=== PATIENT | female | born 1995 | race African-American/Black ===

== ENCOUNTER 2018-02-11 17:31 | Emergency (ER) | payer OTHER ==
[2018-02-11 18:07] VITALS: BP 130/61; PULSE 87; TEMP 98.2; BMI 61.3
--- NOTE | 2018-02-11 18:21 | PDOC ---
History of Present Illness - General History Source: Patient Exam Limitations: No Limitations - History of Present Illness Initial Comments: 02/11/18 18:48 The patient is a 22 year old female, with a significant past medical history of obesity, who presents to the emergency department complaining of nausea, lightheadedness, bodyaches and two syncopal episodes after being in the heat today. She states that she was outside with friends and her niece when she began to have the symptoms and lost consciousness. She then notes that she awoke and was taken home by a friend. When she arrived home, she had another syncopal episode. She denies any head trauma or any kind of injuries. She notes that today she only ate a sandwich and drank some elias javier. She denies receiving the flu shot this year. The patient denies chest pain, dizziness. Denies fever, chills, vomiting, diarrhea and constipation. Denies dysuria, frequency, urgency and hematuria. Family history: Mothe; HTN and DM LMP: 01/19/2018 Allergies: None Past surgical history: None reported Social History: No alcohol, tobacco, or drug use reported <Aaron Woodson - Last Filed: 02/11/18 20:25> <Jessi Lowe - Last Filed: 02/11/18 21:03> - General Chief Complaint: Weakness Stated Complaint: WEAKNESS Time Seen by Provider: 02/11/18 18:12 Past History <Aaron Woodson - Last Filed: 02/11/18 20:25> - Past Medical History COPD: No - Suicide/Smoking/Psychosocial Hx Smoking History: Current every day smoker Number of Cigarettes Smoked Daily: 5 Information on smoking cessation initiated: No <Jessi Lowe - Last Filed: 02/11/18 21:03> - Past Medical History Allergies/Adverse Reactions: Allergies Allergy/AdvReac Type Severity Reaction Status Date / Time No Known Allergies Allergy Verified 02/11/18 17:58 Home Medications: Ambulatory Orders NK [No Known Home Medication] 02/11/18 Review of Systems - Review of Systems Able to Perform ROS?: Yes Comments:: 02/11/18 18:45 GENERAL/CONSTITUTIONAL: No fever or chills. No weakness. HEAD, EYES, EARS, NOSE AND THROAT: No change in vision. No ear pain or discharge. No sore throat. GASTROINTESTINAL: (+) Nausea. No vomiting, diarrhea or constipation. GENITOURINARY: No dysuria, frequency, or change in urination. CARDIOVASCULAR: (+) Shortness of breath. No chest pain RESPIRATORY: No cough, wheezing, or hemoptysis. MUSCULOSKELETAL: No joint or muscle swelling or pain. No neck or back pain. SKIN: No rash NEUROLOGIC: (+) Headache. No vertigo, loss of consciousness, or change in strength/sensation. ENDOCRINE: No increased thirst. No abnormal weight change. HEMATOLOGIC/LYMPHATIC: No anemia, easy bleeding, or history of blood clots. ALLERGIC/IMMUNOLOGIC: No hives or skin allergy. <Aaron Woodson - Last Filed: 02/11/18 20:25> *Physical Exam - Vital Signs Last Vital Signs Temp Pulse Resp BP Pulse Ox 98.2 F 87 18 130/61 100 02/11/18 17:58 02/11/18 17:58 02/11/18 17:58 02/11/18 17:58 02/11/18 17:58 - Physical Exam Comments: 02/11/18 18:44 Constitutional: (+) Obese. Awake, alert, oriented. No acute distress. Head: Normocephalic. Atraumatic Eyes: PERRL. EOMI. Conjunctivae are not pale. ENT: Mucous membranes are moist and intact. Posterior pharynx without exudates or erythema. Uvula midline. Neck: Supple. Full ROM. No lymphadenopathy. Cardiovascular: Regular rate. Regular rhythm. S1, S2 regular. Distal pulses are 2+ and symmetric. Pulmonary/Chest: No evidence of respiratory distress. Clear to auscultation bilaterally No wheezing, rales or rhonchi. Abdominal: Soft and non-distended. There is no tenderness. No rebound, guarding or rigidity. No organomegaly. No palpable masses. Good bowel sounds. Back: No CVA tenderness. Musculoskeletal: No edema. No cyanosis. No clubbing. Full range of motion in all extremities. Nocalf tenderness. Radial/pedal pulses are intact and 2+ bilaterally Skin: Skin is warm and dry. No petechiae. No purpura. Neurological: Alert and oriented to person, place, and time. Cranial nerves II -XII are grossly intact. Normal speech. Ambulatory straight gait. Strength is grossly symmetric. No sensory deficits. Psychiatric: Good eye contact. Normal interaction, affect and behavior. <Aaron Woodson - Last Filed: 02/11/18 20:25> - Vital Signs Last Vital Signs Temp Pulse Resp BP Pulse Ox 98.2 F 87 18 130/61 100 02/11/18 17:58 02/11/18 17:58 02/11/18 17:58 02/11/18 17:58 02/11/18 17:58 <Jessi Lowe - Last Filed: 02/11/18 21:03> Heart Score/ECG Review - ECG Intrepretation Comment:: 02/11/18 18:20 sinus at 87, nl axis, nl interval, no acute st/t wave findings <Jessi Lowe - Last Filed: 02/11/18 21:03> ED Treatment Course - LABORATORY CBC & Chemistry Diagram: 02/11/18 19:20 02/11/18 18:42 <Aaron Woodson - Last Filed: 02/11/18 20:25> - LABORATORY CBC & Chemistry Diagram: 02/11/18 19:20 02/11/18 18:42 <Jessi Lowe - Last Filed: 02/11/18 21:03> Medical Decision Making - Medical Decision Making 02/11/18 19:35 a/p: 22yo female with no pmhx with body aches today, felt weak and tired all day -syncope x 2 after being in this afternoon -unsure if she hit her head -will obtain labs, dimer, head ct, ekg, cxr -will monitor and reassess -ivf hydration -zofran for nausea -preg test 02/11/18 21:01 pt states she can no longer wait dimer pending ckmb pending flu pending ua penidng pt states she wants to sign out AMA states she can no longer wait for further results states she feels better discussed that the work up has not been completed states she will call for results and that she wants to sign out AMA Note: The patient insists on leaving the emergency dept and is signing out against medical advice. The patient understands the risks and complications that may result from the refusal of medical care and admission which includes and permanent disability. The patient has the mental capacity of understanding the risks of refusing care and is capable of making an informed decision. The patient was instructed to return to the emergency department should [] change [] mind regarding medical care or should [] condition worsen. The patient signed the Against Medical Advice form. <Jessi Lowe - Last Filed: 02/11/18 21:03> *DC/Admit/Observation/Transfer - Attestations Scribe Attestion: 02/11/18 18:44 Documentation prepared by Aaron Woodson, acting as biomedical equipment technician for Jessi Lowe DO <Aaron Woodson - Last Filed: 02/11/18 20:25> - Attestations Physician Attestion: 02/11/18 21:03 I, Dr. Jessi Lowe, , attest that this document has been prepared under my direction and personally reviewed by me in its entirety. I further attest, that it accurately reflects all work, treatment, procedures and medical decision -making performed by me. <Jessi Lowe - Last Filed: 02/11/18 21:03> Diagnosis at time of Disposition: Syncope - Discharge Dispostion Disposition: AGAINST MEDICAL ADVICE Condition at time of disposition: Unchanged/Unknown - Referrals Referrals: Shad Cole MD [Staff Physician] - Josh Saldaña MD [Staff Physician] - - Patient Instructions Printed Discharge Instructions: DI for Syncope in Adults (Fainting) Additional Instructions: Please drink plenty of water. Some of the labs are pending, please call medical records for your results. Please call your primary care physician and schedule an appointment for tomorrow.
[2018-02-11] MEDS ORDERED: ONDANSETRON 4 MG/2 ML VIAL IVPUSH ONE (18:37)
[2018-02-11] MEDS ORDERED: SODIUM CHLORIDE 0.9% 1000 ML INFUS.BAG IV ONE (18:37)
[2018-02-11] MEDS ORDERED: ONDANSETRON 4 MG/2 ML VIAL ONE (19:05)
[2018-02-11 19:38] LABS: BASO % 0.4 % (0-2.0); EOS % 0.5 % (0-4.5); HEMATOCRIT 36.3 % (32.4-45.2); HEMOGLOBIN 11.4 GM/dL (10.7-15.3); MCH 24.8 pg (25.7-33.7); MCHC 31.4 g/dl (32.0-36.0); MEAN PLT VOLUME 9.6 fl (7.5-11.1); MONO % 12.6 % (3.8-10.2); NEUT % 74.5 % (42.8-82.8); PLATELET COUNT 230 K/MM3 (134-434); RDW 17.1 % (11.6-15.6); WHITE BLOOD COUNT 6.7 K/mm3 (4.0-10.0)
[2018-02-11 20:16] LABS: ALBUMIN 3.6 g/dl (3.4-5.0); ANION GAP 8 (8-16); BILIRUBIN,TOTAL 0.7 mg/dL (0.2-1.0); BLOOD UREA NITROGEN 11 mg/dL (7-18); CALCIUM 8.6 mg/dL (8.5-10.1); CHLORIDE 107 mmol/L (98-107); CO2 23 mmol/L (21-32); CREATININE 0.8 mg/dL (0.55-1.02); GLUCOSE,RANDOM 66 mg/dL (74-106); MAGNESIUM 2.2 mg/dL (1.8-2.4); POTASSIUM 4.3 mmol/L (3.5-5.1); SGOT/AST 30 U/L (15-37); SGPT/ALT 24 U/L (12-78); SODIUM 138 mmol/L (136-145); TOT PROT 7.5 g/dl (6.4-8.2)
[2018-02-11 20:29] LABS: ALK PHOS 100 U/L (45-117)
[2018-02-11 21:14] LABS: URINE APPEARANCE CLEAR; URINE BILIRUBIN NEGATIVE (<2.0 mg/dL); URINE COLOR YELLOW; URINE GLUCOSE (UA) NEGATIVE (NEGATIVE); URINE KETONE TRACE (NEGATIVE); URINE LEUK ESTERASE NEGATIVE (NEGATIVE); URINE NITRITE NEGATIVE (NEGATIVE); URINE PROTEIN NEGATIVE (NEGATIVE); URINE UROBILINOGEN 4.0 E.U/dl mg/dL (0.2-1.0)
--- NOTE | 2018-02-13 08:53 | EKG ---
Test Reason : Blood Pressure : / mmHG Vent. Rate : 087 BPM Atrial Rate : 087 BPM P-R Int : 144 ms QRS Dur : 088 ms QT Int : 356 ms P-R-T Axes : 038 060 032 degrees QTc Int : 428 ms POOR DATA QUALITY, INTERPRETATION MAY BE ADVERSELY AFFECTED NORMAL SINUS RHYTHM NORMAL ECG NO PREVIOUS ECGS AVAILABLE Confirmed by CHARLES DAI MD ([id number]) on 02/13/2018 8:53:29 AM Referred By: Confirmed By:CHARLES DAI MD
== END 2018-02-11 21:48 | disposition left against medical advice (07) ==
LOC: JER 17:31
DX: T67.1XXA Heat syncope, initial encounter (principal); X58.XXXA Exposure to other specified factors, initial encounter; Y93.89 Activity, other specified; Y92.89 Other specified places as the place of occurrence of the external cause; Y99.8 Other external cause status
CPT/HCPCS: 36415; 80053; 81003; 82550; 82553; 83605; 83735; 84484; 84703; 85025; 85379; 87804; 93005; 93010; 99284-25; J7030

== ENCOUNTER 2021-01-14 12:49 | Emergency (ER) | payer SELFPAY ==
[2021-01-14 12:59] VITALS: BP 148/98; PULSE 111; TEMP 97.5; BMI 59.9
[2021-01-14] MEDS ORDERED: ACETAMINOPHEN INJECTION 100 ML IVPB ONE (13:43)
[2021-01-14] MEDS ORDERED: ACETAMINOPHEN 1000 MG/100 ML VIAL (NON FORMULARY) IVPB ONE (13:44)
[2021-01-14] MEDS ORDERED: SODIUM CHLORIDE 1,000 ML IV STA (13:44)
[2021-01-14 15:28] LABS: BASO % 0.7 % (0-2.0); EOS % 0.2 % (0-4.5); HEMATOCRIT 32.5 % (32.4-45.2); HEMOGLOBIN 10.1 GM/dL (10.7-15.3); LYMPH % 24.5 % (8-40); MCH 21.8 pg (25.7-33.7); MCHC 31.1 g/dl (32.0-36.0); MEAN CELL VOLUME 70.1 fl (80-96); MEAN PLT VOLUME 9.5 fl (7.5-11.1); MONO % 8.8 % (3.8-10.2); NEUT % 65.8 % (42.8-82.8); PLATELET COUNT 237 K/MM3 (134-434); RBC 4.64 M/mm3 (3.60-5.2); RDW 23.1 % (11.6-15.6); WHITE BLOOD COUNT 5.9 K/mm3 (4.0-10.0)
[2021-01-14 15:51] LABS: ALBUMIN 2.9 g/dl (3.4-5.0); CALCIUM 8.7 mg/dL (8.5-10.1)
[2021-01-14 15:52] LABS: BLOOD UREA NITROGEN 8.8 mg/dL (7-18)
[2021-01-14 15:55] LABS: BILIRUBIN,TOTAL 0.4 mg/dL (0.2-1); CREATININE 0.6 mg/dL (0.55-1.3)
[2021-01-14 15:56] LABS: TOT PROT 7.8 g/dl (6.4-8.2)
[2021-01-14 16:56] LABS: EPI CELLS 30 /uL (0-25.1); HYALINE CASTS 2 /uL (0-3.1); PH,URINE 6.5 (5.0-8.0); URINE APPEARANCE CLEAR; URINE BACTERIA 296 /uL (0-1359); URINE BILIRUBIN NEGATIVE (NEGATIVE); URINE COLOR YELLOW; URINE GLUCOSE (UA) NEGATIVE (NEGATIVE); URINE KETONE TRACE (NEGATIVE); URINE LEUK ESTERASE NEGATIVE (NEGATIVE); URINE NITRITE NEGATIVE (NEGATIVE); URINE PROTEIN 1+ (NEGATIVE); URINE RBC 12 /uL (0-23.9); URINE WBC 14 /uL (0-25.8)
[2021-01-14 17:49] LABS: ANISOCYTOSIS 3+; MACROCYTOSIS 1+; OVALOCYTE 1+; PLATELET ESTIMATE NORMAL
== END 2021-01-14 17:34 | disposition home or self-care (01) ==
LOC: JER 12:49
PROC: 3E033NZ Introduction of Analgesics, Hypnotics, Sedatives into Peripheral Vein, Percutaneous Approach (ICD-10-PCS; principal; 2021-01-14)
PROC: 3E0337Z Introduction of Electrolytic and Water Balance Substance into Peripheral Vein, Percutaneous Approach (ICD-10-PCS; 2021-01-14)
DX: O98.511 Other viral diseases complicating pregnancy, first trimester (principal); U07.1 COVID-19; O23.41 Unspecified infection of urinary tract in pregnancy, first trimester
CPT/HCPCS: 36415; 76801-TC; 80053; 81003; 83735; 84702; 85025; 87086; 99284-25; C9803; J0131; U0003; U0005